=== PATIENT | male | born 1945 | race Caucasian/White ===

== ENCOUNTER → 2022-10-21 | Outpatient (CLI) | payer MEDICARE ==
--- NOTE | 2022-10-21 20:14 | US ---
EXAMINATION TYPE: US scrotum with doppler. Grayscale and color Doppler Duplex imaging performed of ana diana scrotum. DATE OF EXAM: 10/21/2022 COMPARISON: NONE CLINICAL INDICATION: Male, 77 years old with history of N50.89 OTHER SPECIFIED DISORDERS; Edema left testicle for 2 months EXAM MEASUREMENTS: TESTICLES: Right Testicle: 4.1 x 1.7 x 2.5 cm Left Testicle: 4.9 x 3.0 x 3.9 cm EPIDIDYMIS HEAD: Right Epididymis: 1.0 cm Left Epididymis: 1.4 cm Doppler performed to assess for testicular vascularity; good bilateral color flow and waveforms are s een. There is no evidence of testicular torsion. Presence of hydroceles: yes, medial to left testicle = 4.4cm Presence of varicoceles: yes, more prominent on the left complex cystic lesions left epididymis, largest = 0.7 x 0.9 x 0.9cm felt to represent dilated tubu lar ectasia. Heterogenous testicles bilaterally IMPRESSION: 1. More focal Tubular ectasia of the left epididymis suggestive. 2. Left hydrocele 3. Left varicocele. 4. Appropriate arterial and spectral venous waveforms to the testes.
== END | disposition home or self-care (01) ==
LOC: RADUSWWP 15:37
PROVIDERS: ATTEND Nurse Practitioner Family
DX: N50.89 Other specified disorders of the male genital organs (principal); N43.3 Hydrocele, unspecified; I86.1 Scrotal varices
CPT/HCPCS: 76870; 93975